=== PATIENT | female | born 1960 | race Caucasian/White ===

== ENCOUNTER 2017-04-28 05:26 | Emergency (ER) | payer BC ==
--- NOTE | 2017-04-28 05:55 | ERNOTE ---
Integumentary HPI - Narrative Date of Service: 04/28/17 - General Time Seen by Provider: 04/28/17 05:40 Source: patient - Immun/Allergies/Home Medications Immunizations: IMMUNIZATION HX Immunizations Up to Date Yes History of Influenza Vaccine No Hx Pneumococcal Vaccination No Allergies/Adverse Reactions: Allergies Allergy/AdvReac Type Severity Reaction Status Date / Time adhesive tape Allergy Hives Verified 04/28/17 05:38 No Known Drug Allergies Allergy Verified 04/28/17 05:38 Home Medications: HOME MEDICATIONS valACYclovir HCL [Valtrex] 1,000 mg PO BID #60 tab 04/28/17 [Last Taken Unknown] - History of Present Illness Narrative: This is a 56-year-old female with no immunocompromising medical conditions who presents to the emergency department complaining of a left for head rash. This started 2-3 days ago. The patient states that they had a sibling recently who also was diagnosed with shingles. The rash is slightly uncomfortable has been moving from a forehead down to retro-orbital or radicular and retro-orbital. The patient denies any red RI or tearing. No visual pain. The lesions on the 4 head are associated with a sensation of "creepy crawly" sensation no fever no other somatic complaints Review of Systems - Review of Systems Constitutional: Present: no symptoms reported EYE: Present: no symptoms reported. Absent: eye pain, eye discharge, blurred vision, double vision, vision changes, tearing ENT: Present: no symptoms reported Respiratory: Present: no symptoms reported Cardiology: Present: no symptoms reported Gastrointestinal/Abdominal: Present: no symptoms reported Genitourinary: Present: no symptoms reported Musculoskeletal: Present: no symptoms reported Skin: Present: See HPI, rash Neurological: Present: no symptoms reported Endocrine: Present: no symptoms reported Hematologic/Lymphatic: Present: no symptoms reported Psych: Present: no symptoms reported All Other Systems: All systems neg except as marked - Patient's Past Medical History Patient History - Medical: No pertinent hx Patient History - Cardiac/Respiratory: No pertinent hx Patient History - Cancer: No Hx of Cancer Patient History - Surgical Procedures: Patient History - Other: None - Social History Living Situations: home Psych History: No pertinent hx Smoking Status: Never smoker Alcohol Use: none Drug Use: none - Immunizations Immunizations Up to Date: Yes Hx Pneumococcal Vaccination: No History of Influenza Vaccine: No Physical Exam - Physical Exam General Appearance: Present: wd/wn, alert, no apparent distress Head Exam: Present: normal inspection, no evidence of injury, other - rashes described in the skin exam Eye Exam: Normal inspection: bilateral, PERRL: bilateral, EOMI: bilateral Ears, Nose, Throat: Present: normal ENT inspection, normal pharynx Neck: Present: normal inspection, nontender Respiratory: Present: no respiratory distress, normal breath sounds Cardiovascular/Chest: Present: regular rate, rhythm Gastrointestinal/Abdominal: Present: normal bowel sounds, nontender, nondistended, soft Extremity Exam: Present: normal inspection, normal range of motion, no edema Neurological Exam: Present: alert, oriented, normal mood/affect Skin Exam: Present: normal color, warm/dry Lymphatic Exam: Present: no adenopathy ED Progress - Vital Signs Patient's Vital Signs:: I have reviewed the patient's vital signs. Vital Signs: Vital Signs 04/28/17 05:34 Temperature 36.7 C Pulse Rate 78 Respiratory 18 Rate Blood Pressure 151/97 O2 Sat by Pulse 96 Oximetry - Progress/Reassessment Chief Complaint: Rash Progress Note-Subjective: 04/28/17 06:08 The patient's slit lamp exam with floor seen does not demonstrate any branching pseudohypha no signs of herpes involvement of the eye. She does have a tiny abrasion at the 9 o'clock position. She says she's been rubbing her eyes a bit. She has not had excessive tearing. She has been driving late at night. Plan - Plan Plan: I discussed with the patient the importance of getting her eye checked out by an clinical pharmacy manager. She is aware that failing to do so could result in loss of vision. I'm starting the patient on Valtrex. She does not want start to medicines at that same time so I will hold off on prednisone. Patient was offered a tetanus shot but wants to refuse that until she is finished all of these other medicines. The patient is aware that she will need to take the antiviral until the rash is completely gone. I'm going to write her a prescription for 60 tablets. This will be 30 days. If she develops fever excessive redness of the face or anything else she will return to the ER. I have counseled her on avoiding women anybody with immunocompromise status. Elderly or also susceptible. She is aware of this. She is on the road traveling but she is going to call one of the city she will be [place] in the next 2 nights to see if she can get in to see an clinical pharmacy manager. Departure Clinical Impression: Shingles outbreak - Departure Disposition: Home self-care Condition: Stable Instructions: Shingles, [id number] Additional Instructions: As we discussed, you should take the prescribed Valtrex. Take it twice a day until the rash is completely gone. If he run out before then you need to talk to her family doctor about getting further pain medicine. You absolutely positively must see an property preservation specialist within the next 72 hours. If you start having excessive tearing or pain in your eye should go immediately to an eye doctor. Failing to get this treated immediately can rapidly result in loss of vision. Call [facility] specialist, clinical pharmacy manager, tell them you were seen in the emergency room and diagnosed with shingles of the forehead, and asked to be worked into the schedule. Most clinical pharmacy manager will, to you. Avoid being around people or people who are immunocompromised such is on chemotherapy or with HIV. The aware that elderly are also susceptible to this. When he get home he needed to talk to your family doctor about a tetanus shot. The rash may develop and the small blisters which will rupture. These are extremely contagious. He should wash her hands frequently if this happens. Return to the ER for any new or concerning symptoms Prescriptions: valACYclovir HCL [Valtrex] 1,000 mg PO BID #60 tab
[2017-04-28] MEDS ORDERED: valACYclovir HCL 500 MG TABLET PO ONE ×2 (06:00→06:15)
[2017-04-28 06:13] VITALS: BP 156/77
== END 2017-04-28 06:16 | disposition home or self-care (01) ==
LOC: ER 05:26
DX: B02.9 Zoster without complications (principal)